=== PATIENT | female | born 1965 | race Two or more races ===

== ENCOUNTER 2019-05-25 05:45 | Day surgery (SDC) | payer OTHER ==
[~2019-05-25 05:45] MED LIST: SYNTHROID150 MCG PO
[2019-05-25] MEDS ORDERED: Tylenol #3 PO (11:08)
[2019-05-25] MEDS ORDERED: DOXYCYCLINE HY100 M3 PO (11:08)
== END 2019-05-25 14:00 | disposition home or self-care (01) ==
LOC: CIR.AMB 05:45
DX: N84.0 Polyp of corpus uteri (principal); D25.0 Submucous leiomyoma of uterus

== ENCOUNTER 2024-09-04 08:25 | Outpatient (CLI) | payer OTHER ==
[~2024-09-04 08:25] MED LIST changes: +DOXYCYCLINE HY100 M3 PO; +Tylenol #3 PO
== END 2024-09-04 08:31 | disposition home or self-care (01) ==
LOC: TOM 08:25
PROVIDERS: ATTEND Urology
DX: N20.0 Calculus of kidney (principal); N31.1 Reflex neuropathic bladder, not elsewhere classified

== ENCOUNTER 2024-10-17 07:51 | Outpatient (CLI) | payer OTHER | END 2024-10-17 07:52 | disposition home or self-care (01) | LOC: NUCLEAR 07:51 | PROVIDERS: ATTEND Urology | DX: N20.0 Calculus of kidney (principal) ==